=== PATIENT | male | born 1960 | race Caucasian/White ===

== ENCOUNTER 2017-08-02 19:54 | Outpatient (CLI) | payer MEDICARE ==
[2017-08-02 20:23] LABS: INR-International Normal Ratio 1.7; Prothrombin Time 20.4 SEC (12.0-14.7)
== END 2017-08-02 19:55 | disposition home or self-care (01) ==
LOC: MADLAB 19:54
DX: Z51.81 Encounter for therapeutic drug level monitoring (principal); Z79.01 Long term (current) use of anticoagulants
CPT/HCPCS: 85610